=== PATIENT | male | born 1975 | race Two or more races ===

== ENCOUNTER 2024-12-30 13:50 | Emergency (ER) | payer OTHER ==
[~2024-12-30] VITALS: Ht 177.8 cm; Wt 66.2 kg
== END 2024-12-30 20:08 | disposition home or self-care (01) ==
LOC: ER 13:52
DX: M43.6 Torticollis (principal); M50.30 Other cervical disc degeneration, unspecified cervical region; M51.379 Other intervertebral disc degeneration, lumbosacral region without mention of lumbar back pain or lower extremity pain